=== PATIENT | female | born 2000 | race Caucasian/White ===

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

== ENCOUNTER 2020-02-24 13:32 | Emergency (ER) | payer BC ==
[~2020-02-24] VITALS: Ht 160 cm; Wt 56.7 kg
--- NOTE | 2020-02-24 14:11 | NUR ---
PT IS IN ROOM #2B. DR BROOKS EVALUATED THE PT.
[2020-02-24] MEDS ORDERED: ONDANSETRON 4 MG/2 ML VIAL IV ONE (14:15)
[2020-02-24] MEDS ORDERED: IV NORMAL SALINE 1000 ML BAG IV ONE (14:15)
[2020-02-24] MEDS ORDERED: ONDANSETRON 4 MG/2 ML VIAL ONE (14:35)
[2020-02-24 14:51] LABS: BASOPHILS % (AUTO) 0.6 % (0.0-2.0); HEMATOCRIT 40.6 % (31.2-41.9); HEMOGLOBIN 13.9 g/dL (10.9-14.3); LYMPHOCYTES % (AUTO) 15.2 % (20.5-74.5); MEAN CORPUSCULAR HEMOGLOBIN 30.3 uug (24.7-32.8); MEAN CORPUSCULAR HGB CONC 34 g/dL (32.3-35.6); MEAN CORPUSCULAR VOLUME 88.8 fL (75.5-95.3); MONOCYTES # (AUTO) 0.3 K/uL (2.0-10.0); MONOCYTES % (AUTO) 4.3 % (0-11); NEUTROPHILS % (AUTO) 79.9 % (31.5-64.5); PLATELET COUNT (AUTO) 240 K/uL (179-408); RED BLOOD CELL COUNT(AUTO) 4.58 MIL/uL (3.63-4.92); WHITE BLOOD COUNT (AUTO) 6.3 K/uL (3.8-11.8)
[2020-02-24 14:54] LABS: *BILIRUBIN,URIN NEGATIVE (NEGATIVE); *CLARITY,URINE SLIGHTLY CLOUDY (CLEAR); *COLOR,URINE YELLOW (YELLOW); *KETONES,URINE TRACE (NEGATIVE); LEUKOCYTE ESTERASE ,URINE NEGATIVE (NEGATIVE); NITRITE, URINE NEGATIVE (NEGATIVE); PH,URINE 6.5 (5.0-8.0); UGLUCOSE NEGATIVE (NEGATIVE)
[2020-02-24 14:56] LABS: *BLOOD, URINE TRACE (NEGATIVE)
[2020-02-24 14:57] LABS: *URINE HCG, QUAL NEG (NEGATIVE)
[2020-02-24 14:58] LABS: CREATININE 0.6 mg/dL (0.6-1.3)
[2020-02-24 15:10] LABS: BILIRUBIN,DIRECT 0.1 mg/dL (0.0-0.2); BILIRUBIN,TOTAL 0.4 mg/dL (0.2-1.0)
--- NOTE | 2020-02-24 16:15 | NUR ---
PT WAS D/C'd TO HOME. D/C INSTRUCTIONS GIVEN TO THE PT.
[2020-02-24 16:16] VITALS: BP 126/68
[2020-02-24 16:46] LABS: BACTERIA,URINE FEW /HPF (NONE SEEN); MUCUS,URINE MODERATE /LPF (0-FEW); SQUAMOUS EPITHELIAL CELL,UR FEW /HPF (NONE SEEN)
== END 2020-02-24 16:17 | disposition home or self-care (01) ==
LOC: ER 13:32
DX: K29.20 Alcoholic gastritis without bleeding (principal); F10.10 Alcohol abuse, uncomplicated
CPT/HCPCS: 36415; 80048; 80076; 81001; 83690; 84703; 85025; 96361; 96374; 99284; J2405; A4663; J7030

== ENCOUNTER 2020-11-27 01:46 | Emergency (ER) | payer BC ==
[~2020-11-27] VITALS: Ht 160 cm; Wt 58.1 kg
[2020-11-27 02:19] VITALS: BP 122/98
--- NOTE | 2020-11-27 02:19 | NUR ---
Patient discharged to home in stable condition. Written and verbal after care instructions given. Patient verbalizes understanding of instructions. Stressed follow up or return to ER for worsening s/s. Steady gait. VSS. All belongings with patient.
== END 2020-11-27 02:10 | disposition home or self-care (01) ==
LOC: ER 01:48
DX: M79.622 Pain in left upper arm (principal); L98.9 Disorder of the skin and subcutaneous tissue, unspecified
CPT/HCPCS: A4663

== ENCOUNTER 2020-12-28 23:52 | Emergency (ER) | payer BC ==
[~2020-12-28] VITALS: Ht 160 cm; Wt 56.7 kg
--- NOTE | 2020-12-28 23:55 | NUR ---
MD Danielson in room to do MSE.
[2020-12-29] MEDS ORDERED: GENT5DRO4 EACHEYE (00:16)
[2020-12-29 00:22] VITALS: BP 110/66
--- NOTE | 2020-12-29 00:22 | NUR ---
Patient discharged to home in stable condition. Written and verbal after care instructions given. Patient verbalizes understanding of instructions. Stressed follow up or return to ER for worsening s/s. Patient ambulates with steady gait, V/S stable, received paper Rx, and left with all personal belongings.
== END 2020-12-29 00:22 | disposition home or self-care (01) ==
LOC: ER 23:54
DX: H00.014 Hordeolum externum left upper eyelid (principal); H00.012 Hordeolum externum right lower eyelid
CPT/HCPCS: A4663

== ENCOUNTER 2021-07-13 02:06 | Emergency (ER) | payer BC, MEDICAID ==
[~2021-07-13] VITALS: Ht 157.5 cm; Wt 59.0 kg
[~2021-07-13 02:06] MED LIST: GENT5DRO4 EACHEYE
--- NOTE | 2021-07-13 04:44 | NUR ---
Pt was frank back to room ED3A by myself from waiting room for nasuea and dizziness, based on patients describtion, it sounds more like vertigo then dizziness,. Pt placed on gurney in pos of comfort and initial vs were obtained VSS, PE WNL. Pt otherwise completely healthy with no med issues. [facility] EDME for eval.
[2021-07-13] MEDS ORDERED: ONDA4TAB5 GT (04:53)
--- NOTE | 2021-07-13 04:56 | NUR ---
PATIENT WAS MSE BY DR KAN IN ROOM 03A.
[2021-07-13] MEDS ORDERED: ONDANSETRON ODT 4 MG TAB.RAPDIS SL ONE (05:00)
[2021-07-13] MEDS ORDERED: ONDANSETRON ODT 4 MG TAB.RAPDIS ONE (05:04)
--- NOTE | 2021-07-13 05:09 | NUR ---
Patient discharged to home in stable condition. Written and verbal after care instructions given. Patient verbalizes understanding of instructions. Stressed follow up or return to ER for worsening s/s. NAUSEA / VOMITING IMPROVED PER PATIENT.
[2021-07-13 05:12] VITALS: BP 118/70
[2021-07-13] MEDS ORDERED: METO-295 PO (14:46)
== END 2021-07-13 05:16 | disposition home or self-care (01) ==
LOC: ER 02:09
DX: R11.0 Nausea (principal); F10.129 Alcohol abuse with intoxication, unspecified
CPT/HCPCS: A4663; Q0162

== ENCOUNTER 2021-07-13 12:28 | Emergency (ER) | payer BC, MEDICAID ==
[~2021-07-13] VITALS: Ht 157.5 cm; Wt 59.0 kg
[~2021-07-13 12:28] MED LIST changes: +ONDA4TAB5 GT
[2021-07-13] MEDS ORDERED: IV NORMAL SALINE 1000 ML BAG IV ONE (13:30)
[2021-07-13] MEDS ORDERED: diphenhydrAMINE 50 MG/1 ML VIAL IV ONE (13:30)
[2021-07-13] MEDS ORDERED: METOCLOPRAMIDE HCL 10 MG/2 ML VIAL IV ONE (13:30)
[2021-07-13] MEDS ORDERED: METOCLOPRAMIDE HCL 10 MG/2 ML VIAL ONE (13:33)
[2021-07-13] MEDS ORDERED: diphenhydrAMINE 50 MG/1 ML VIAL ONE (13:33)
--- NOTE | 2021-07-13 13:50 | NUR ---
Pt refused blood draw, aware.
[2021-07-13 14:40] LABS: *URINE HCG, QUAL NEGATIVE (NEGATIVE)
[2021-07-13] MEDS ORDERED: METO-295 PO (14:46)
--- NOTE | 2021-07-13 14:56 | NUR ---
IV removed. Catheter intact and site benign. Pressure and 4x4 gauze applied to site. No bleeding noted.
--- NOTE | 2021-07-13 14:56 | NUR ---
Patient discharged to home in stable condition. Written and verbal after care instructions given. Patient verbalizes understanding of instructions. Stressed follow up or return to ER for worsening s/s.
== END 2021-07-13 14:57 | disposition home or self-care (01) ==
LOC: ER 12:33
DX: R11.2 Nausea with vomiting, unspecified (principal)
CPT/HCPCS: 84703; 96361; 96374; 96375; 99284; J1200; J2765; A4663; J7030

== ENCOUNTER 2022-03-29 15:47 | Emergency (ER) | payer BC, MEDICAID ==
[~2022-03-29] VITALS: Ht 160 cm; Wt 55.3 kg
[~2022-03-29 15:47] MED LIST changes: +METO-295 PO
[2022-03-29] MEDS ORDERED: METOCLOPRAMIDE HCL 10 MG/2 ML VIAL IV ONE (16:15)
[2022-03-29] MEDS ORDERED: IV NORMAL SALINE 500 ML BAG IV ONE (16:15)
[2022-03-29] MEDS ORDERED: METOCLOPRAMIDE HCL 10 MG/2 ML VIAL ONE (16:19)
--- NOTE | 2022-03-29 16:55 | NUR ---
"I don't want to finish the IV." per patient. notified.
--- NOTE | 2022-03-29 17:09 | NUR ---
Patient wants to leave ER, notified.
--- NOTE | 2022-03-29 17:11 | NUR ---
IV removed. Catheter intact and site benign. Pressure and 4x4 gauze applied to site. No bleeding noted. Patient discharged to home in stable condition with brisk steady gait. Written and verbal after care instructions given. Patient verbalized understanding and compliance of instructions. Stressed follow up with primary doctor or return to ER for worsening s/s.
[2022-03-29 17:14] LABS: *URINE HCG, QUAL NEG (NEGATIVE)
== END 2022-03-29 17:11 | disposition home or self-care (01) ==
LOC: ER 16:03
DX: R11.2 Nausea with vomiting, unspecified (principal)
CPT/HCPCS: 99284; 96374; 96361; 84703; J2765; J7040; A4663

== ENCOUNTER 2023-05-23 04:26 | Emergency (ER) | payer BC, MEDICAID | END 2023-05-23 05:43 | disposition left against medical advice (07) | LOC: ER 04:29 | DX: Z53.21 Procedure and treatment not carried out due to patient leaving prior to being seen by health care provider (principal); Z79.899 Other long term (current) drug therapy ==

== ENCOUNTER 2024-07-08 02:15 | Emergency (ER) | payer BC | END 2024-07-08 02:23 | disposition left against medical advice (07) | LOC: ER 02:15 | DX: R11.10 Vomiting, unspecified (principal); Z53.21 Procedure and treatment not carried out due to patient leaving prior to being seen by health care provider ==